=== PATIENT | male | born 2000 | race African-American/Black ===

== ENCOUNTER 2021-10-21 02:39 | Emergency (ER) | payer SELFPAY ==
[~2021-10-21] VITALS: Ht 167.6 cm; Wt 83.5 kg
[2021-10-21 02:55] LABS: CLARITY,URINE SL CLOUDY (CLEAR); COLOR,URINE YELLOW (YELLOW); KETONES,URINE NEGATIVE (NEGATIVE); LEUKOCYTE ESTERASE ,URINE TRACE (NEGATIVE); NITRITE,URINE NEGATIVE (NEGATIVE); PROTEIN,URINE DIPSTICK NEGATIVE (NEGATIVE)
[2021-10-21 02:59] LABS: BACTERIA,URINE FEW /HPF; EPITHELIAL CELLS,URINE FEW /LPF; RBC,URINE 0-5 /HPF (0-5)
[2021-10-21 03:00] LABS: AMORPHOUS SEDIMENT,URINE FEW (FEW); MUCUS,URINE MODERATE (RARE)
[2021-10-21] MEDS ORDERED: METRONIDAZOLE 500 MG TAB PO ONE (03:15)
[2021-10-21] MEDS ORDERED: CEFTRIAXONE 500 MG VIAL IM ONE (03:15)
[2021-10-21] MEDS ORDERED: METRONIDAZOLE 500 MG TAB ONE (03:18)
[2021-10-21] MEDS ORDERED: CEFTRIAXONE 1 GM VIAL ONE (03:18)
== END 2021-10-21 03:42 | disposition home or self-care (01) ==
LOC: ER 02:45
DX: R30.0 Dysuria (principal); N34.2 Other urethritis
CPT/HCPCS: 81001; 99283; J0696